=== PATIENT | female | born 1955 | race Caucasian/White ===

== ENCOUNTER → 2020-08-08 08:21 | Outpatient (CLI) | payer MEDICARE, BC, SELFPAY ==
--- NOTE | 2020-08-05 13:55 | FLU_PTH ---
PATIENT: PHILIPP MONAE LOC: [facility] U#:[id number] AGE/SX: 69/F ROOM: RE08/08/[address]: Dr. Amarilys Egan MD : [id number] BED: DIS: SPEC #: [id number] RECD: 08/05/20 16:23 STATUS: MELANY REEsteban #: [id number] ZULEIKA: 08/05/20 13:[address]: Amarilys Egan DEPT: CYTOLOGY RECD BY: Kasie Orourke ENTERED: 08/08/20 10:26 SP TYPE: Fluid OTHR DR: Dr. Poornima Yarbrough MD Tissues: A - Thyroid gland, NOS B - Thyroid gland, NOS Procedures: Special Stain Group II Surgery Specimen Level IV Cytospin Fluid HEADER OPERATION: Ultrasound-guided fine needle aspiration of left thyroid PRE-OP DIAGNOSIS: Thyroid nodules TISSUE SUBMITTED: A - FNA left thyroid fluid for cytology, B - FNA left thyroid slides x8 DIAGNOSIS CYTOLOGY A. Fine needle aspiration, left thyroid nodule (cytospin and cell block): Adequate for evaluation. Negative, consistent with benign follicular/colloid nodule. B. Fine needle aspiration, left thyroid nodule (smears): Adequate for evaluation. Negative, consistent with benign follicular/colloid nodule. AM:celeste 08/09/20 CYTOLOGY STUDY Slides are reviewed. CYTOLOGY GROSS A - Received is 35 ml of light brown cloudy fluid labeled with the patient's name and and designated per the requisition as left thyroid. Submitted for cytology preparation including cell block. B - Received are eight smears labeled with the patient's name and designated per the requisition as left thyroid. Submitted for staining. / celeste 08/08/20 TC:5 CPT: 31708, 63574, 74029
== END ==
PROVIDERS: PCP Internal Medicine; Referring Provider Surgery; Visit Provider Surgery
DX: E04.1 Nontoxic single thyroid nodule (principal)
CPT/HCPCS: 88108; 88305; 88313